=== PATIENT | male | born 1975 | race Caucasian/White ===

== ENCOUNTER → 2016-10-16 | Outpatient (CLI) | payer SELFPAY ==
[2016-10-16 12:43] LABS: HEMATOCRIT 41.2 % (37.9-51.0); HEMOGLOBIN 13.3 g/dL (13.5-17.0); HGB HCT DIFFERENCE -1.3; MEAN CORPUSCULAR HEMOGLOBIN 27.1 pg (27.0-33.4); MEAN CORPUSCULAR HGB CONC 32.2 g/dL (32.0-36.0); MEAN CORPUSCULAR VOLUME 84 fl (80-97); RED CELL DISTRIBUTION WIDTH 19.6 % (11.5-14.0); WHITE BLOOD COUNT 10.4 10^3/uL (4.0-10.5)
[2016-10-16 13:08] LABS: ALANINE AMINOTRANSFERASE 36 U/L (21-72); ASPARTATE AMINO TRANSFERASE 15 U/L (17-59); BLOOD UREA NITROGEN 14 mg/dL (7-20); CREATININE RESULT 0.99 mg/dL (0.52-1.25)
[2016-10-16 13:40] LABS: BASOPHILS % (MANUAL) 0 % (0-2); EOSINOPHILS % (MANUAL) 2 % (0-6); LYMPHOCYTES % (MANUAL) 20 % (13-45); TOTAL CELLS COUNTED 100
[2016-10-16 13:41] LABS: TOXIC GRANULATION SLIGHT
[2016-10-16 13:42] LABS: ANISOCYTOSIS 2+; BURR CELLS 2+; OVALOCYTES 1+; POIKILOCYTOSIS 2+; SCHISTOCYTES 1+
== END ==
LOC: LHC 12:25
PROVIDERS: ATTEND Surgery
DX: Z79.2 Long term (current) use of antibiotics (principal); Z51.81 Encounter for therapeutic drug level monitoring
CPT/HCPCS: 80202; 82565; 84450; 84460; 84520; 85025